=== PATIENT | female | born 2005 | race Caucasian/White ===

== ENCOUNTER 2023-02-23 15:15 | Emergency (ER) | payer OTHER, MEDICAID, SELFPAY ==
[2023-02-23 15:19] VITALS: BP 148/105; PULSE 114; RESP 14; TEMP 36.8; O2SAT 97
--- NOTE | 2023-02-23 16:25 | ED.VIS.FEGU ---
HPI HPI - Female History of Present Illness Chief Complaint: Vag Bld, Preg Pain Pain: Positive for Pelvic Pain Onset: Yesterday Context: Gradual Onset Timing: Intermittent Quality: Positive for Cramping Location: Suprapubic Bleeding Issue: Positive for Vaginal bleeding; Negative for Passing clots or Passing tissue Onset: Yesterday Context: Sudden Onset Timing: Intermittent Associated Symptoms Associated Symptoms: Negative for Dysuria, Frequency or Urgency Last known menstrual period: 01/08/2023 Test: Positive P: 0 Narrative Narrative: Patient presents with bleeding and pelvic pain that began yesterday. Patient states she took 2 home test which were positive. Patient states she is not passing any clots or tissue. Patient admits to some cramping over the suprapubic area. Patient states this is intermittent. Patient denies any fevers or chills. Patient states her last menstrual period was 01/08/2023. Patient denies any urinary complaints. Patient states her pain does radiate into her back. Patient denies any fevers or chills. PFSH PFSH Medical History Diabetes type I Home Medications metformin 500 mg tablet 500 mg PO BID 02/23/23 [History Last Taken Unknown] Allergy/AdvReac Type Severity Reaction Status Date / Time No Known Allergies Allergy Verified 02/23/23 15:18 Surgical History no surgical history Social History Smoking Status: Current every day smoker tobacco type: e-cigarettes ROS ROS ED Constitutional Constitutional ED: Denies chills or fever(s) Eyes Eyes: Denies blurry vision or change in vision ENT ENT ED: Denies rhinorrhea or sore throat Cardiovascular Cardiovascular: Denies chest pain or palpitations Respiratory/Chest Respiratory/Chest: Reports cough; Denies dyspnea Gastrointestinal Gastrointestinal: Reports abdominal pain, nausea and vomiting Genitourinary Genitourinary ED: Denies dysuria or urinary frequency Musculoskeletal Musculoskeletal: Reports back pain; Denies neck pain Integumentary Denies abscess or rash Neurologic Neurologic: Denies headache(s) or weakness Allergic/Immunologic Allergic/Immunologic ED: Denies mouth swelling or urticaria EXAM Physical Exam Const Vital Signs: 02/23/23 15:19 Temperature 98.3 F Temperature Source Oral Pulse Rate 114 H Respiratory Rate 14 Blood Pressure 148/105 H Blood Pressure Mean 119 Pulse Ox 97 Oxygen Delivery Method Room Air Positive well nourished and well developed General Appearance ED: well developed and NAD HEENT Reports moist mucous membranes Neck supple and no JVD Resp normal respiratory effort and clear to auscultation bilaterally Cardio regular rate and regular rhythm GI soft to palpation and non-distended Palpation: tender suprapubic; Negative for guarding Neuro oriented x3, CN's II-XII intact bilaterally and no sensory deficits noted Sensorium / Orientation: alert Motor Exam: strength 5/5 throughout Psych mental status grossly normal MDM MDM MDM Narrative Medical decision making narrative: Differential diagnosis includes ectopic , threatened miscarriage, incomplete miscarriage, urinary tract infection, and gastrointestinal cramping. CBC will be obtained to assess for leukocytosis and anemia. Urinalysis will be obtained to assess for urinary tract infection and hematuria. Quantitative hCG will be obtained to assess for level. Type and Rh will be obtained to assess for blood type and Rh compatibility. Lab Data Attestation: I reviewed the patient's lab results. Lab results narrative: CBC was reviewed and was within normal limits. Quantitative hCG was reviewed and was 1962. Blood type was a positive. Urinalysis was reviewed. Occult blood was 250 with 50-100 red blood cells. There is no evidence of urinary tract infection. Labs: Laboratory Results - last 24 hr 02/23/23 02/23/23 15:30 17:02 WBC 7.0 RBC 5.20 Hgb 12.8 Hct 41.9 MCV 80.6 L MCH 24.6 L MCHC 30.5 L RDW Std Deviation 42.5 RDW Coeff of Rachel 14.6 Plt Count 302 MPV 10.7 Immature Gran % (Auto) 1.000 H Neut % (Auto) 54.3 Lymph % (Auto) 33.3 Charles % (Auto) 8.7 Eos % (Auto) 1.6 Baso % (Auto) 1.1 H Absolute Neuts (auto) 3.8 Absolute Lymphs (auto) 2.34 Nucleated RBC % 0 HCG, Quant 1962 H Urine Color Yellow Urine Clarity Sl. Cloudy Urine pH 5.0 Ur Specific [place] 1.025 Urine Protein 30 H Urine Glucose (UA) 1000 H Urine Ketones 15 H Urine Occult Blood 250 H Urine Nitrite Negative Urine Bilirubin Negative Urine Urobilinogen Normal Ur Leukocyte Esterase 25 H Urine RBC 50-100 SEEN Urine WBC 0-5 SEEN Ur Squamous Epith Cells 0-5 SEEN Amorphous Sediment 1+ URATE Urine Bacteria 0 SEEN Urine Mucus 2+ Blood Type A POSITIVE Radiography Diagnostic Testing: Clinical Impression(s) from Imaging Studies Obstetrics Ultrasound 02/23/23 17:37 IMPRESSION: 1. Intrauterine gestation with an average ultrasound age of 6 weeks 1 day and an ultrasound estimated due date of 10/18/2023. heart rate is 80 bpm. 2. Right ovarian cyst. Electronically Signed: Isidro Nevarez MD at 18:43 EST , Pelvic ultrasound was obtained. There is an intrauterine gestation with an average age of 6 weeks 1 day. heart rate is 80. There is also a right ovarian cyst. This was interpreted by the radiologist and was also independently reviewed by myself. Treatment and Re-Evaluation Narrative: Patient was advised of her findings. Patient was instructed on complete vaginal rest. Patient was given a referral for [employer]. Patient was instructed to drink plenty of fluids. Patient was instructed to follow-up in 2 to 3 days. Patient understood and was agreeable with the plan. All questions were answered. Discharge Plan Triage Chief Complaint: Vag Bld, Preg ED Provider: Stanton Hargrove Dx/Rx/DC Orders Clinical Impression: Threatened miscarriage, First trimester Instructions: ED Possible Miscarriage ... Prescriptions: No Action metformin 500 mg tablet 500 mg PO BID Primary Care Provider: Care Physician,No Primary Referrals: Sarahy Segundo MD [Med Staff - Active Staff] - 2 Days Care Physician,No Primary [Primary Care Provider] - Disposition Disposition: Home, Self Care
[2023-02-23 16:37] LABS: Absolute Lymphocyte Count 2.34 X10^3/uL (0.83-4.51); Absolute Neutrophil Count 3.8 X10^3/uL (2.0-7.7); Basophil# 0.08 X10^3/uL; Basophil% 1.1 % (0-1); Eosinophil# 0.11 X10^3/uL; Eosinophils% 1.6 % (0-5); Hematocrit 41.9 % (37-47); Hemoglobin 12.8 g/dL (12.0-15.0); Lymphocyte # 2.34 X10^3/ul (0.83-4.51); Lymphocyte % 33.3 % (19-41); Mean Corp Hgb Conc 30.5 g/dL (32-36); Mean Corpuscular Hgb 24.6 pg (27.0-32.0); Mean Corpuscular Volume 80.6 fL (81-99); Mean Platelet Vol. 10.7 fl (6.2-12.0); Monocyte# 0.61 X10^3/uL; Monocyte% 8.7 % (0-10); NRBC Flagged by Analyzer 0 % (0-5); Neutrophil # 3.81 X10^3/uL (2.7-7.7); Neutrophil % 54.3 % (47-70); Platelet Count 302 K/mm3 (150-450); RBC Distribution Width CV 14.6 % (11.6-14.6); RBC Distribution Width SD 42.5 fl (35.1-43.9)
[2023-02-23 17:07] LABS: Color, Urine Yellow (Yellow); Glucose, Dipstick 1000 mg/dl (Normal); Ketone-Dipstick 15 mg/dl (Negative); Leukocyte Esterase-Dipstick 25 /ul (Negative); Nitrite-Dipstick Negative (Negative); Occult Blood-Urine 250 /ul (Negative); Protein-Dipstick 30 mg/dl (Negative); Specific Gravity, Urine 1.025 (1.002-1.030); Urine Bilirubin Dipstick Negative (Negative); Urine Clarity Sl. Cloudy (Clear); Urine Urobilinogen Normal (Normal)
[2023-02-23 17:13] LABS: Bacteria 0 SEEN /hpf (None Seen); Red Blood Cells-Urine 50-100 SEEN /hpf (0-5); Squamous Epithelial Cells - UA 0-5 SEEN /hpf (5-10); White Blood Cells 0-5 SEEN /hpf (0-5)
[2023-02-23 17:14] LABS: Amorphous Sediment 1+ URATE; Mucous, Urine 2+ /hpf (<or=2+)
[2023-02-23 17:32] LABS: hCG Titer Quant., Serum 1962 mIU/mL (1-3)
--- NOTE | 2023-02-23 17:37 | US_ITS ---
EXAM: US , TRANSVAGINAL CLINICAL INDICATION: Flank pain TECHNIQUE: Real-time transvaginal obstetrical ultrasound of the maternal pelvis and a first trimester with image documentation. Transvaginal imaging was used for better evaluation of the fetus and adnexa. COMPARISON: No relevant prior studies available. FINDINGS: GESTATION: There is an intrauterine gestational sac with a mean sac diameter of 1.1 cm age 5 weeks 6 days. There is a 5 mm yolk sac. There is a pole crown-rump length of 4 mm age 6 weeks 2 days. heart rate of 80 bpm. PLACENTA/AMNIOTIC FLUID: Cannot be adequately evaluated due to the early gestational age. UTERUS/CERVIX: The uterus measures 8.9 x 5.4 cm. No myometrial mass. OVARIES: The right ovary measures 3.7 x 2.3 x 3.2 cm. There is a 2.0 x 1.6 x 2.0 cm anechoic structure in the ovary compatible with a cyst. The left ovary measures 2.6 x 1.3 x 1.7 cm. No mass. FREE FLUID: No free fluid. US/Transvaginal w/Preg US IMPRESSION: 1. Intrauterine gestation with an average ultrasound age of 6 weeks 1 day and an ultrasound estimated due date of 10/18/2023. heart rate is 80 bpm. 2. Right ovarian cyst. Electronically Signed: Isidro Nevarez MD at 18:43 EST ,
== END 2023-02-23 19:19 | disposition home or self-care (01) ==
PROVIDERS: Emergency Provider Emergency Medicine; Visit Provider Emergency Medicine
DX: O20.0 Threatened abortion (principal); E10.9 Type 1 diabetes mellitus without complications; O24.011 Pre-existing type 1 diabetes mellitus, in pregnancy, first trimester; O26.891 Other specified pregnancy related conditions, first trimester; F17.290 Nicotine dependence, other tobacco product, uncomplicated; O99.331 Smoking (tobacco) complicating pregnancy, first trimester; Z79.84 Long term (current) use of oral hypoglycemic drugs; Z3A.01 Less than 8 weeks gestation of pregnancy
CPT/HCPCS: 76817; 81001; 84702; 85025; 86900; 86901; 99284; A4216

== ENCOUNTER 2023-12-03 23:51 | Emergency (ER) | payer OTHER, MEDICAID, SELFPAY ==
[2023-12-03 23:51] VITALS: BP 139/96; PULSE 75; RESP 18; TEMP 36.6; O2SAT 90
[2023-12-03 23:54] VITALS: BP 139/96; PULSE 75; RESP 18; TEMP 36.6; O2SAT 90; BMI 33.3
[2023-12-04] MEDS: Ibuprofen 600 MG Tablet PO (00:11)
--- NOTE | 2023-12-04 00:17 | EDS_ITS ---
HPI History of Present Illness Chief Complaint: Sore Throat Narrative Narrative: Patient is a 18-year-old female with past medical history of diabetes, hypertension who presented to the emergency department chief complaint of sore throat. Patient states that her symptoms started this evening and states that she did not take anything for pain. Patient denies any recent sick contacts. [facility] Medical History Gave to child recently Hypertension Diabetes type I Home Medications ?Medication ?Instructions ?Recorded ?Last Taken ?Type metformin 500 mg tablet 500 mg PO BID 02/23/23 Unknown History Allergy/AdvReac Type Severity Reaction Status Date / Time coconut Allergy Severe Anaphylaxis Verified 12/03/23 23:53 Social History Smoking Status: Former smoker ROS ROS ED ROS Narrative Constitutional: Denies any fevers, chills, headaches, lightheadedness, dizziness Eyes: Denies change in vision double vision blurry vision Cardiovascular: Denies chest pain Respiratory: Complains of cough denies shortness of breath or wheezing Abdomen: Denies abdominal pain nausea vomit diarrhea : Denies urinary symptoms Neurological: Denies numbness, weakness, tingling Skin: Denies rashes or lesions EXAM Physical Exam Narrative Exam Narrative: General: Patient lying in bed rest comfortably did not appear to be acute distre ss Head: Atraumatic, normocephalic Eyes, nose, throat, ears: PERRL bilaterally, EOMI bilateral, no conjunctival injection noted, posterior pharynx has mild erythema uvula midline no peritonsillar abscess noted no sublingual swelling noted Neck: Soft, supple, trachea midline, no concern for Db's angina Cardiovascular: Regular rate and rhythm no murmurs gallops rubs noted Respiratory: Clear to auscultation bilaterally Neurological: Patient following commands knew that she was at [facility] year is 2023 Skin: Warm, dry, tact Const Vital Signs: 12/03/23 23:51 12/03/23 23:54 Temperature 97.8 F 97.8 F Temperature Source Tympanic Tympanic Pulse Rate 75 75 Respiratory Rate 18 18 Blood Pressure 139/96 H 139/96 H Blood Pressure Mean 110 110 Pulse Ox 90 90 Oxygen Delivery Method Room Air Room Air MDM MDM MDM Narrative Medical decision making narrative: Patient is a 18-year-old female who presented to the emerged part with chief complaint of sore throat. Patient will have a workup performed here on the differential diagnose includes but not limited to viral pharyngitis, strep throat, another upper respiratory infection secondary to viral etiology. Once workup is obtained reviewed she will be reevaluated. Patient be given ibuprofen. Patient's strep test was negative this was sent for culture, tested negative for COVID flu and RSV. I discussed results with patient and instructed her that she likely has another viral pharyngitis and was encouraged to continue supportive care. She was encouraged to follow-up on the strep culture results with her primary care physician. Patient is feeling better she would like to go home. She was encouraged to rotate ibuprofen and Tylenol [id number] for pain control. She is agreeable this plan as well as her significant other at bedside. All question concerns answered she was discharged home in stable condition. Discharge Plan Triage Chief Complaint: Sore Throat ED Provider: Dk Aguilar Dx/Rx/DC Orders Clinical Impression: Acute viral pharyngitis Prescriptions: No Action metformin 500 mg tablet 500 mg PO BID Primary Care Provider: Care Physician,No Primary Referrals: Care Physician,No Primary [Primary Care Provider] - Activity Restrictions/Additional Instructions: Rotate Tylenol and ibuprofen [id number] for pain control. Return with worsening symptoms or any other concerns. Follow-up on your strep culture results with your primary care physician. Print Language: Azeri Disposition Disposition: Home, Self Care
[2023-12-04 01:43] VITALS: BP 125/66; PULSE 74; RESP 16; TEMP 36.6; O2SAT 97
== END 2023-12-04 01:44 | disposition home or self-care (01) ==
PROVIDERS: Emergency Provider Emergency Medicine; Visit Provider Emergency Medicine
DX: J02.9 Acute pharyngitis, unspecified (principal); E10.9 Type 1 diabetes mellitus without complications; I10 Essential (primary) hypertension; Z87.891 Personal history of nicotine dependence
CPT/HCPCS: 87077; 87081; 87631; 87651; 99282; A4216